=== PATIENT | female | born 1955 | race Two or more races ===

== ENCOUNTER 2023-01-13 08:30 | Inpatient (IN) | payer OTHER ==
[~2023-01-13] VITALS: Ht 157.5 cm; Wt 79.4 kg
[2023-01-13] MEDS ORDERED: LEVO-T25 MCG PO (12:08)
[2023-01-13] MEDS ORDERED: PEPCID AC20 MG PO (12:08)
[2023-01-13] MEDS ORDERED: ACID REDUCER20 M1 PO (12:08)
[2023-01-15] MEDS ORDERED: OMEPRAZOLE40 MG (11:45)
[2023-01-15] MEDS ORDERED: LEVOTHYROXINE25 MC1 (11:46)
[2023-01-17] MEDS ORDERED: NEURONTIN300 MG PO (11:05)
[2023-01-17] MEDS ORDERED: ACETAMINOPHEN500 M2 PO (11:05)
== END 2023-01-17 14:41 | disposition home or self-care (01) | DRG 331 ==
LOC: O/R 01-15 07:24 → SURG 01-15 08:45 → SURH 01-15 13:34
PROVIDERS: ADMIT Surgery; ATTEND Surgery
PROC: 0DQP4ZZ Repair Rectum, Percutaneous Endoscopic Approach (ICD-10-PCS; principal; 2023-01-15 10:00)
DX: K62.3 Rectal prolapse (principal); Z20.822 Contact with and (suspected) exposure to COVID-19